=== PATIENT | male | born 1985 | race African-American/Black ===

== ENCOUNTER 2017-03-27 04:50 | Emergency (ER) | payer OTHER ==
[~2017-03-27] VITALS: Ht 182.9 cm; Wt 64.4 kg
[2017-03-27 05:00] VITALS: BP 123/81
--- NOTE | 2017-03-27 06:00 | NUR ---
CALLED PT NAME X3. NO RESPONSE IN WR.
--- NOTE | 2017-03-27 06:25 | NUR ---
CALLED PT NAME IN WR. NO RESPONSE.
--- NOTE | 2017-03-27 06:44 | NUR ---
CALLED PT NAME IN WR. NO RESPONSE.
== END 2017-03-27 06:46 | disposition home or self-care (01) ==
LOC: ER 04:51
DX: Z53.21 Procedure and treatment not carried out due to patient leaving prior to being seen by health care provider (principal)
CPT/HCPCS: A4606; Z7610